=== PATIENT | female | born 1955 | race Caucasian/White ===

== ENCOUNTER 2017-04-20 14:23 | Emergency (ER) | payer MEDICARE, MEDICAID ==
[2017-04-20 14:40] VITALS: BP 143/96
--- NOTE | 2017-04-20 14:51 | UC ---
[facility] HPI - HPI Summary HPI Summary: 61 YEAR OLD FEMALE PRESENTS WITH COMPLAINS OF LEFT LOWER MOLAR ABSCESS. - History of Current Complaint Chief Complaint: UCDentalProblem Stated Complaint: DENTAL PAIN Time Seen by Provider: 04/20/17 14:48 Hx Obtained From: Patient Onset/Duration: Sudden Onset Severity: Moderate Pain Scale Used: 0-10 Numeric - 7 Aggravating Factor(s): Chewing - Allergies/Home Medications Allergies/Adverse Reactions: Allergies Allergy/AdvReac Type Severity Reaction Status Date / Time Acetaminophen Allergy Unknown Verified 04/20/17 14:40 [From Darvocet-N] Reaction Details Codeine Allergy Unknown Verified 04/20/17 14:40 Reaction Details Latex Allergy Rash Verified 04/20/17 14:40 Propoxyphene Allergy Unknown Verified 04/20/17 14:40 [From Darvocet-N] Reaction Details PMH/Surg Hx/FS Hx/Imm Hx Previously Healthy: Yes - Surgical History Surgical History: Yes Surgery Procedure, Year, and Place: LEFT BREAST - 2006 - Social History Alcohol Use: None Substance Use Type: Prescribed Smoking Status (MU): Light Every Day Tobacco Smoker Review of Systems Constitutional: Negative Skin: Negative Eyes: Negative ENT: Dental Pain Respiratory: Negative Cardiovascular: Negative Gastrointestinal: Negative Genitourinary: Negative Motor: Negative Neurovascular: Negative Musculoskeletal: Negative Neurological: Negative Psychological: Negative All Other Systems Reviewed And Are Negative: Yes Physical Exam Triage Information Reviewed: Yes Appearance: Pain Distress Vital Signs: Initial Vital Signs Temp 35.9 C 04/20/17 14:36 Pulse 92 04/20/17 14:36 Resp 18 04/20/17 14:36 BP 143/96 04/20/17 14:36 Pulse Ox 98 04/20/17 14:36 Vital Signs Reviewed: Yes Eye Exam: Normal ENT Exam: Normal Dental Exam: Normal Dental: Positive: Abscess @ Neck exam: Normal Neck: Positive: 1 Respiratory Exam: Normal Cardiovascular Exam: Normal Abdominal Exam: Normal Musculoskeletal Exam: Normal Neurological Exam: Normal Psychological Exam: Normal Skin Exam: Normal Dental Complaint Course/Dx - Differential Dx/Diagnosis Provider Diagnoses: DENTAL ABSCESS Discharge - Discharge Plan Condition: Stable Disposition: HOME Prescriptions: Amoxicillin/Clavulanate TAB* [Augmentin TAB 875*] 875 mg PO BID #20 tab Chlorhexidine MW 0.12% 473ML* [Peridex Mouth Wash 0.12%*] 15 ml MT TID PC #1 btl Magic M W2 Jimi/Maal/Nyst/Lido* 5 ml SWISH SPIT QID PRN #120 ml PRN Reason: Pain Patient Education Materials: Abscess (ED) Referrals: Jabari SARGENT,Hair Alberto [Primary Care Provider] -
== END 2017-04-20 15:05 | disposition home or self-care (01) ==
LOC: UCEAST 14:23
DX: K04.7 Periapical abscess without sinus (principal); Z88.6 Allergy status to analgesic agent; F17.210 Nicotine dependence, cigarettes, uncomplicated
CPT/HCPCS: 99212; G0463

== ENCOUNTER 2021-12-16 16:16 | Inpatient (IN) ==
[2021-12-16] MEDS ORDERED: NS 0.9% 1000 ml BAG 1,000 ML IV ONE (16:59)
[2021-12-16 18:06] LABS: INR 1.34 (0.86-1.15)
[2021-12-16 18:10] LABS: Hematocrit 22 % (35-47); Hemoglobin 6.5 g/dL (12.0-16.0); Mean Corpuscular HGB Conc 30 g/dL (31-36); Mean Corpuscular Hemoglobin 22 pg (27-31); Mean Corpuscular Volume 73 fL (80-97); Mean Platelet Volume 7.2 fL (7.4-10.4); Platelet Count 538 10^3/uL (150-450); Red Blood Count 2.99 10^6 /uL (3.70-4.87); Red Cell Distribution Width 26 % (10-15); White Blood Count 12.8 10^3/uL (3.5-10.8)
[2021-12-16 18:27] LABS: Urine Appearance Turbid; Urine Bilirubin Negative (Negative); Urine Blood 3+ (Negative); Urine Color Yellow; Urine Glucose Negative (Negative); Urine Ketones Negative (Negative); Urine Nitrite Positive (Negative); Urine Protein 2+(100 mg/dL) (Negative); Urine Specific Gravity 1.017 (1.002-1.030); Urine Urobilinogen Negative (Negative)
[2021-12-16 18:34] LABS: Urine Bacteria 1+ (Absent); Urine Red Blood Cell 3+(>10/hpf) (Absent); Urine White Blood Cell 3+(>20/hpf) (Absent)
[2021-12-16 18:43] LABS: ABS Basophils 0.1 10^3/ul (0-0.2); ABS Eosinophils 0.9 10^3/ul (0-0.6); ABS Lymphocytes 1.3 10^3/ul (1.0-4.8); ABS Monocytes 0.8 10^3/ul (0-0.8); ABS Neutrophils 9.7 10^3/ul (1.5-7.7); Eosinophil % 6.8 %; Lymphocyte % 9.8 %; Nucleated Red Blood Cells % 0.1
[2021-12-16 18:55] LABS: Albumin 2.6 g/dL (3.2-5.2); Albumin/Globulin Ratio 0.8 (1-3); Calcium 7.7 mg/dL (8.6-10.3); Globulin 3.2 g/dL (2-4); Magnesium 1.9 mg/dL (1.9-2.7); Potassium 4.4 mmol/L (3.5-5.0); Total Bilirubin 0.3 mg/dL (0.2-1.0); Total Protein 5.8 g/dL (6.4-8.9); eGFR CKD-EPI 104.8 (>60)
[2021-12-16] MEDS ORDERED: cefTRIAXone 1 gm/50 mL D5W 1 GM/50 ML BAG IV ONE (21:36)
[2021-12-16] MEDS ORDERED: Ondansetron 4 mg VIAL 2 MG/ML 2 ml VIAL IV PRN (22:09)
[2021-12-16 22:50] LABS: Urine Benzodiazepine Screen Presumptive Positive (None Detect); Urine Cannabinoids Screen Presumptive Positive (None Detect); Urine Opiates Screen Presumptive Positive (None Detect)
[2021-12-17] MEDS: Enoxaparin 40 MG/0.4 ML SYR SUBCUT SCH ×2 (02:14→21:30)
[2021-12-17 06:18] LABS: Hematocrit 25 % (35-47); Hemoglobin 7.7 g/dL (12.0-16.0); Mean Corpuscular HGB Conc 31 g/dL (31-36); Mean Corpuscular Hemoglobin 23 pg (27-31); Mean Corpuscular Volume 74 fL (80-97); Mean Platelet Volume 7.1 fL (7.4-10.4); Platelet Count 520 10^3/uL (150-450); Red Blood Count 3.34 10^6 /uL (3.70-4.87); Red Cell Distribution Width 24 % (10-15); White Blood Count 13.9 10^3/uL (3.5-10.8)
[2021-12-17 06:39] LABS: ABS Basophils 0.1 10^3/ul (0-0.2); ABS Eosinophils 0.8 10^3/ul (0-0.6); ABS Lymphocytes 1.2 10^3/ul (1.0-4.8); ABS Monocytes 0.8 10^3/ul (0-0.8); Eosinophil % 5.8 %; Lymphocyte % 8.5 %; Nucleated Red Blood Cells % 0.2
[2021-12-17 06:50] LABS: Microcytosis 2+
[2021-12-17 06:51] LABS: Anisocytosis 2+; Polychromasia 1+
[2021-12-17 07:17] LABS: Calcium 7.9 mg/dL (8.6-10.3); Potassium 4.5 mmol/L (3.5-5.0); eGFR CKD-EPI 104.8 (>60)
[2021-12-17] MEDS ORDERED: Permethrin 1% LOTION 59 ML BTL TOPICAL ONE (15:17)
[2021-12-17] MEDS: Acetaminophen IV 1 GM/100ML 100 ML IV PRN (21:32)
[2021-12-17] MEDS: cefTRIAXone 1 gm/50 mL D5W 1 GM/50 ML BAG IV SCH (22:45)
[2021-12-18 05:42] LABS: Hematocrit 27 % (35-47); Hemoglobin 8.4 g/dL (12.0-16.0); Mean Corpuscular HGB Conc 32 g/dL (31-36); Mean Corpuscular Hemoglobin 24 pg (27-31); Mean Corpuscular Volume 75 fL (80-97); Platelet Count 573 10^3/uL (150-450); Red Blood Count 3.56 10^6 /uL (3.70-4.87); Red Cell Distribution Width 26 % (10-15); White Blood Count 12.1 10^3/uL (3.5-10.8)
[2021-12-18 05:47] LABS: ABS Basophils 0.1 10^3/ul (0-0.2); ABS Eosinophils 0.6 10^3/ul (0-0.6); ABS Lymphocytes 1.2 10^3/ul (1.0-4.8); ABS Monocytes 0.9 10^3/ul (0-0.8); ABS Neutrophils 9.4 10^3/ul (1.5-7.7); Eosinophil % 4.6 %; Lymphocyte % 9.6 %
[2021-12-18 06:13] LABS: Calcium 7.8 mg/dL (8.6-10.3); Potassium 4.1 mmol/L (3.5-5.0); eGFR CKD-EPI 98.7 (>60)
[2021-12-18] MEDS ORDERED: Polyethylene Glycol 3350 17 GM PACKET PO PRN (13:08)
[2021-12-18] MEDS ORDERED: Magnesium Hydroxide LIQ 30 ML UDC PO PRN (13:08)
[2021-12-18] MEDS ORDERED: Magnesium CITRATE LIQ 300 ML BTL PO ONE (17:51)
[2021-12-18 18:17] LABS: Corrected Retic Count 2.2 % (0.5-1.5); Hematocrit for Retic CNT 27 % (35-47); Immature Retic Fraction 0.61; RBC Retic Count 3.59 10^6/uL (3.70-4.87)
[2021-12-18 18:43] LABS: Ferritin 430.6 ng/mL (11-307)
[2021-12-18] MEDS: Magnesium Hydroxide LIQ 30 ML UDC PO SCH (21:56)
[2021-12-18] MEDS: Senna TAB 8.6 mg TAB PO PRN (21:56)
[2021-12-18] MEDS: Enoxaparin 40 MG/0.4 ML SYR SUBCUT SCH (21:57)
[2021-12-18] MEDS: cefTRIAXone 1 gm/50 mL D5W 1 GM/50 ML BAG IV SCH (21:58)
[2021-12-19 07:51] LABS: Anisocytosis 2+; Hematocrit 27 % (35-47); Hemoglobin 8.1 g/dL (12.0-16.0); Hypochromasia 1+; Mean Corpuscular HGB Conc 31 g/dL (31-36); Mean Corpuscular Hemoglobin 23 pg (27-31); Mean Corpuscular Volume 76 fL (80-97); Mean Platelet Volume 7.5 fL (7.4-10.4); Microcytosis 1+; Platelet Count 572 10^3/uL (150-450); Polychromasia 1+; Red Cell Distribution Width 26 % (10-15); White Blood Count 11.6 10^3/uL (3.5-10.8)
[2021-12-19 07:52] LABS: ABS Eosinophils 0.5 10^3/ul (0-0.6); ABS Lymphocytes 1.1 10^3/ul (1.0-4.8); ABS Neutrophils 8.9 10^3/ul (1.5-7.7); Eosinophil % 4.6 %; Lymphocyte % 9.8 %
[2021-12-19] MEDS: Magnesium Hydroxide LIQ 30 ML UDC PO SCH ×2 (09:55→21:43)
[2021-12-19] MEDS ORDERED: Polyethylene Glycol 3350 17 GM PACKET PO PRN (10:15)
[2021-12-19] MEDS: Polyethylene Glycol 3350 17 GM PACKET PO PRN (11:38)
[2021-12-19 16:43] LABS: Urine Alcohol Negative mg/dL (Cutoff: 10); Urine Barbiturates Negative; Urine Benzodiazepines Presumptive Positive ng/mL; Urine Cocaine Negative; Urine Methadone Presumptive Positive ng/mL (Negative); Urine Opiates Presumptive Positive ng/mL (Negative); Urine Phencyclidine Negative ng/mL (Cutoff: 25); Urine Tetrahydrocannabinol Presumptive Positive ng/mL (Cutoff: 50)
[2021-12-19] MEDS: Enoxaparin 40 MG/0.4 ML SYR SUBCUT SCH (21:33)
[2021-12-19] MEDS: cefTRIAXone 1 gm/50 mL D5W 1 GM/50 ML BAG IV SCH (21:35)
[2021-12-19] MEDS ORDERED: Magnesium Hydroxide LIQ 30 ML UDC PO PRN (22:00)
[2021-12-20 06:25] LABS: Hematocrit 27 % (35-47); Hemoglobin 8.3 g/dL (12.0-16.0); Mean Corpuscular HGB Conc 31 g/dL (31-36); Mean Corpuscular Hemoglobin 23 pg (27-31); Mean Corpuscular Volume 76 fL (80-97); Platelet Count 568 10^3/uL (150-450); Red Blood Count 3.55 10^6 /uL (3.70-4.87); Red Cell Distribution Width 26 % (10-15)
[2021-12-20 06:55] LABS: ABS Basophils 0.1 10^3/ul (0-0.2); ABS Eosinophils 0.5 10^3/ul (0-0.6); ABS Lymphocytes 1.1 10^3/ul (1.0-4.8); ABS Neutrophils 10.3 10^3/ul (1.5-7.7); Eosinophil % 3.9 %; Lymphocyte % 8.6 %
[2021-12-20 07:19] LABS: Calcium 7.7 mg/dL (8.6-10.3); Magnesium 2.1 mg/dL (1.9-2.7); Potassium 4.4 mmol/L (3.5-5.0); eGFR CKD-EPI 107.1 (>60)
[2021-12-20] MEDS: Polyethylene Glycol 3350 17 GM PACKET PO PRN (09:12)
[2021-12-20] MEDS: Acetaminophen IV 1 GM/100ML 100 ML IV PRN (09:12)
[2021-12-20] MEDS: Senna TAB 8.6 mg TAB PO PRN (09:12)
[2021-12-20] MEDS ORDERED: cefTRIAXone 1 gm/50 mL D5W 1 GM/50 ML BAG IV ONE (15:00)
[2021-12-20] MEDS: Enoxaparin 40 MG/0.4 ML SYR SUBCUT SCH (19:44)
[2021-12-21 07:02] LABS: Hematocrit 25 % (35-47); Hemoglobin 7.8 g/dL (12.0-16.0); Mean Corpuscular HGB Conc 31 g/dL (31-36); Mean Corpuscular Hemoglobin 24 pg (27-31); Mean Corpuscular Volume 76 fL (80-97); Platelet Count 523 10^3/uL (150-450); Red Blood Count 3.33 10^6 /uL (3.70-4.87); Red Cell Distribution Width 25 % (10-15); White Blood Count 12.2 10^3/uL (3.5-10.8)
[2021-12-21 07:31] LABS: Calcium 7.9 mg/dL (8.6-10.3); Potassium 4.3 mmol/L (3.5-5.0); eGFR CKD-EPI 109.1 (>60)
[2021-12-21 08:34] LABS: ABS Basophils 0.1 10^3/ul (0-0.2); ABS Eosinophils 0.6 10^3/ul (0-0.6); ABS Monocytes 0.8 10^3/ul (0-0.8); ABS Neutrophils 9.8 10^3/ul (1.5-7.7); Eosinophil % 4.7 %; Lymphocyte % 8.1 %
[2021-12-21 14:08] VITALS: BP 132/71
[2021-12-22 01:06] LABS: EDDP By GC/MS 1049 ng/mL; Urine Methadone Confirm 553 ng/mL; Urine Methadone Interpretation Positive.
[2021-12-22 06:51] LABS: Urine Carboxy THC Confirm >500.0 ng/mL; Urine THC Interpretation Positive.
[2021-12-24] MEDS ORDERED: Permethrin 1% LOTION 59 ML BTL TOPICAL ONE (09:00)
[2021-12-26 10:20] LABS: Codeine Confirmation, Urine 48 ng/mL (Cutoff: 25); Dihydrocodeine Conf, Urine Negative ng/mL (Cutoff: 25); Naloxone Confirm, Urine Negative ng/mL (Cutoff: 25); Norhydrocodone Confirm, Urine Negative ng/mL (Cutoff: 25); Noroxycodone Confirm, Urine Negative ng/mL (Cutoff: 25); Noroxymorphone Confirm, Urine Negative ng/mL (Cutoff: 25); Opiates Interpretation, Urine Positive.; Oxycodone Confirm, Urine Negative ng/mL (Cutoff: 25); Oxymorphone Confirm, Urine Negative ng/mL (Cutoff: 25)
[2021-12-26 11:05] LABS: 7-amnioflunitrazepam LC-MS/MS Negative ng/mL (Cutoff: 10); Alpha OH Triazolam by LC-MS/MS Negative ng/mL (Cutoff: 10); Alpha-OH Midazolam LC-MS/MS Negative ng/mL (Cutoff: 10); Alprazolam LC-MS/MS 1503 ng/mL (Cutoff: 10); Benzodiazepines Interpretation Positive.; Chlordiazepoxide by LC-MS/MS Negative ng/mL (Cutoff: 10); Clobazam LC-MS/MS Negative ng/mL (Cutoff: 10); Lorazepam by LC-MS/MS Negative ng/mL (Cutoff: 10); Oxazepam by LC-MS/MS 601 ng/mL (Cutoff: 10); Prazepam by LC-MS/MS Negative ng/mL (Cutoff: 10); Temazepam by LC-MS/MS 19 ng/mL (Cutoff: 10); Triazolam by LC-MS/MS Negative ng/mL (Cutoff: 10); Zolpidem Phenyl-4-Carboxylic Negative ng/mL (Cutoff: 10); Zolpidem by LC-MS/MS Negative ng/mL (Cutoff: 10)
== END 2021-12-21 16:02 | disposition left against medical advice (07) | DRG 812 ==
LOC: ED 16:16 → EDHOLD 22:06 → SUATTDRO 22:06 → MED 12-17 19:34
PROVIDERS: ADMIT Internal Medicine; ATTEND Internal Medicine